=== PATIENT | female | born 1945 | race Caucasian/White ===

== ENCOUNTER → 2018-01-22 | Outpatient (CLI) | payer MEDICARE ==
[~2018-01-22] MED LIST: ALEN70TA5 PO; ASCO500T8 PO; ASPI-496 PO; ATOR-2 PO; CALC-31 PO; CHOL100012 PO; CHON400C PO; CYCL5TAB PO; DIAZ5TAB PO; FLUO20TA25 PO; GLUCOSAMINE 1,1 EACH PO; LANS15TA6 PO; MULT-516 PO; MULT-90 PO; NITR100C56 PO; OMEG-14 PO; OMEP-110 PO; OXYB5TAB7 PO; OXYC-302 PO; OXYC10TA6 PO; OXYC1TAB7 PO; OXYC5CAP2 PO; OXYCODONE PO; POLY119P4 PO; SULF1TAB24 PO; TEMA15CA PO; TIZA2CAP2 PO; TRAM50TA2 PO; VITA150T PO
== END | disposition home or self-care (01) ==
LOC: CFH 13:30
PROVIDERS: ATTEND Nurse Practitioner Family
DX: Z12.31 Encounter for screening mammogram for malignant neoplasm of breast (principal); Z12.2 Encounter for screening for malignant neoplasm of respiratory organs; I65.23 Occlusion and stenosis of bilateral carotid arteries; F17.210 Nicotine dependence, cigarettes, uncomplicated
CPT/HCPCS: 77067; 93880; G0297